=== PATIENT | female | born 1985 | race Two or more races ===

== ENCOUNTER 2018-04-04 20:32 | Emergency (ER) | payer OTHER ==
[~2018-04-04] VITALS: Ht 162.6 cm; Wt 54.4 kg
[2018-04-04 20:38] VITALS: BP 127/68
== END 2018-04-04 21:17 | disposition home or self-care (01) ==
LOC: ER 20:32
DX: J40 Bronchitis, not specified as acute or chronic (principal); F41.9 Anxiety disorder, unspecified
CPT/HCPCS: A4606; Z7610

== ENCOUNTER 2018-04-10 17:11 | Emergency (ER) | payer OTHER ==
[~2018-04-10] VITALS: Ht 162.6 cm; Wt 54.4 kg
[2018-04-10 17:24] VITALS: BP 126/67
--- NOTE | 2018-04-10 17:30 | NUR ---
PT A/O X4. NEG ACUTE DISTRES. NEG SOB. STABLE CONDITION. VSS. SAFETY MEASURES IN PLACE.
== END 2018-04-10 18:43 | disposition home or self-care (01) ==
LOC: ER 17:13
DX: J20.9 Acute bronchitis, unspecified (principal); F41.9 Anxiety disorder, unspecified
CPT/HCPCS: 71045; 99283; A4606; Z7610

== ENCOUNTER 2021-08-30 08:24 | Emergency (ER) | payer SELFPAY ==
--- NOTE | 2021-08-30 09:10 | NUR ---
CALLED TO TRIAGE NO ANSWER.
--- NOTE | 2021-08-30 09:43 | NUR ---
CALLED TO TRIAGE NO ANSWER.
--- NOTE | 2021-08-30 09:54 | NUR ---
Patient eloped from facility. ER MD notified.
== END 2021-08-30 09:54 | disposition left against medical advice (07) ==
LOC: ER 08:27
DX: Z53.21 Procedure and treatment not carried out due to patient leaving prior to being seen by health care provider (principal)